=== PATIENT | male | born 1970 | race Two or more races ===

== ENCOUNTER 2017-11-15 08:21 | Day surgery (SDC) | payer OTHER ==
[~2017-11-15 08:21] MED LIST: COUMADIN5 MG PO; LIPITOR20 MG PO; LISINOPRIL5 MG PO; OMEPRAZOLE20 MG PO; SEROQUEL200 MG PO; ZANTAC300 MG PO
== END 2017-11-15 17:30 | disposition home or self-care (01) ==
LOC: CIR.AMB 08:21
DX: G56.01 Carpal tunnel syndrome, right upper limb (principal); M65.311 Trigger thumb, right thumb; M65.321 Trigger finger, right index finger

== ENCOUNTER 2018-01-10 07:43 | Day surgery (SDC) | payer OTHER ==
[~2018-01-10 07:43] MED LIST changes: +AVAPRO150 MG PO; +BUPRENORPHINE1 EAC4 TD
== END 2018-01-10 13:25 | disposition home or self-care (01) ==
LOC: CIR.AMB 07:43
DX: G56.02 Carpal tunnel syndrome, left upper limb (principal); M65.322 Trigger finger, left index finger